=== PATIENT | male | born 1955 | race Two or more races ===

== ENCOUNTER → 2018-06-07 12:01 | Outpatient (CLI) | payer OTHER ==
[~2018-06-07 12:01] MED LIST: ASPIR-LOW81 MG; IRBESARTAN300 MG; LIPITOR20 MG; PLAVIX75 MG; SIMVASTATIN80 MG; TOPROL XL25 M1
== END | disposition home or self-care (01) ==
LOC: LAB 12:01 → T RESPIRAT 12:01
DX: J43.2 Centrilobular emphysema (principal); R06.02 Shortness of breath

== ENCOUNTER 2018-06-07 13:42 | Inpatient (IN) | payer OTHER ==
[~2018-06-07] VITALS: Ht 172.7 cm; Wt 99.3 kg
[2018-06-15] MEDS ORDERED: AVAPRO300 MG PO (16:49)
[2018-06-15] MEDS ORDERED: CLONIDINE HCL0.1 MG PO (16:50)
[2018-06-15] MEDS ORDERED: SIMVASTATIN40 MG PO (16:50)
[2018-06-15] MEDS ORDERED: TOPROL XL25 M1 PO (16:50)
[2018-06-15] MEDS ORDERED: VENTOLIN HFA18 GM IH (16:52)
== END 2018-06-15 18:32 | disposition home or self-care (01) | DRG 191 ==
LOC: ER 13:42 → MEDI 16:31 → MEDJ 16:31 → SEC-K 18:56 → MEDJ 19:14
PROC: 4A033R1 Measurement of Arterial Saturation, Peripheral, Percutaneous Approach (ICD-10-PCS; principal; 2018-06-07)
PROC: 3E0F7GC Introduction of Other Therapeutic Substance into Respiratory Tract, Via Natural or Artificial Opening (ICD-10-PCS; 2018-06-07)
PROC: 4A12X4Z Monitoring of Cardiac Electrical Activity, External Approach (ICD-10-PCS; 2018-06-07)
PROC: B246ZZZ Ultrasonography of Right and Left Heart (ICD-10-PCS; 2018-06-08)
PROC: BB24Y0Z Computerized Tomography (CT Scan) of Bilateral Lungs using Other Contrast, Unenhanced and Enhanced (ICD-10-PCS; 2018-06-08)
PROC: 5A09457 Assistance with Respiratory Ventilation, 24-96 Consecutive Hours, Continuous Positive Airway Pressure (ICD-10-PCS; 2018-06-08)
PROC: CB121ZZ Planar Nuclear Medicine Imaging of Lungs and Bronchi using Technetium 99m (Tc-99m) (ICD-10-PCS; 2018-06-13)
PROC: B54DZZZ Ultrasonography of Bilateral Lower Extremity Veins (ICD-10-PCS; 2018-06-14)
PROC: BW24Y0Z Computerized Tomography (CT Scan) of Chest and Abdomen using Other Contrast, Unenhanced and Enhanced (ICD-10-PCS; 2018-06-15)
DX: J44.1 Chronic obstructive pulmonary disease with (acute) exacerbation (principal); E87.2 Acidosis; J98.11 Atelectasis; R09.02 Hypoxemia; F17.210 Nicotine dependence, cigarettes, uncomplicated; G56.81 Other specified mononeuropathies of right upper limb; J98.6 Disorders of diaphragm; I10 Essential (primary) hypertension; I25.10 Atherosclerotic heart disease of native coronary artery without angina pectoris; E78.49 Other hyperlipidemia; Z98.61 Coronary angioplasty status; I87.2 Venous insufficiency (chronic) (peripheral)

== ENCOUNTER 2022-08-08 15:24 | Emergency (ER) | payer OTHER ==
[~2022-08-08] VITALS: Ht 167.6 cm; Wt 99.8 kg
[~2022-08-08 15:24] MED LIST changes: +AVAPRO300 MG PO; +CLONIDINE HCL0.1 MG PO; +SIMVASTATIN40 MG PO; +TOPROL XL25 M1 PO; +VENTOLIN HFA18 GM IH
== END 2022-08-08 18:13 | disposition home or self-care (01) ==
LOC: ER 15:24
DX: I10 Essential (primary) hypertension (principal); Z91.013 Allergy to seafood